=== PATIENT | male | born 1955 | race Caucasian/White ===

== ENCOUNTER 2017-07-08 12:44 | Emergency (ER) | payer BC ==
--- NOTE | 2017-07-08 13:58 | ERPHSYRPT ---
- History of Present Illness Time Seen by Provider: 07/08/17 13:49 Source: patient Exam Limitations: no limitations Patient Subjective Stated Complaint: FELT LEFT KNEE "POP" TODAY. HAS BEEN HAVING CHRONIC PAIN FOR A WHILE BUT TODAY IS MUCH WORSE. Triage Nursing Assessment: TO ROOM PER W/C. SKIN W/D, COLOR NORMAL. NO SWELLING NOTED TO LEFT KNEE AT THIS TIME. GOOD PEDAL PULSE. Physician History: This is a 61-year-old white male arrives with complaint of pain in his left knee. According the patient needs had chronic pain in his left knee for approximately a month however today he had name he was garage sale ing and felt a pop in his left knee is having pain in his knee he states he has pain which is much worse if he puts any weight on it. Past medical history includes restless leg syndrome Method of Injury: other (felt pop when walking around) Occurred: this afternoon (12:00) Lower Extremities Pain: knee: left Modifying Factors: Improves With: nothing Associated Symptoms: unable to bear weight, popping sensation Allergies/Adverse Reactions: No Known Drug Allergies Allergy (Unverified 07/08/17 13:14) Home Medications: Ropinirole 2Mg [Requip 2Mg Tab] 2 mg PO DAILY 07/08/17 [History] Hx Tetanus, Diphtheria Vaccination/Date Given: Yes Hx Influenza Vaccination/Date Given: No Hx Pneumococcal Vaccination/Date Given: No - Review of Systems Constitutional: No Fever, No Chills Eyes: No Symptoms Ears, Nose, & Throat: No Symptoms Respiratory: No Cough, No Dyspnea Cardiac: No Chest Pain, No Edema, No Syncope Abdominal/Gastrointestinal: No Abdominal Pain, No Nausea, No Vomiting, No Diarrhea Genitourinary Symptoms: No Dysuria Musculoskeletal: Joint Pain (left knee pain) Skin: No Rash Neurological: No Dizziness, No Focal Weakness, No Sensory Changes Psychological: No Symptoms Endocrine: No Symptoms All Other Systems: Reviewed and Negative - Past Medical History Pertinent Past Medical History: Yes Other Medical History: RLS - Past Surgical History Past Surgical History: No - Social History Smoking Status: Never smoker Exposure to second hand smoke: No Drug Use: none Patient Lives Alone: No - Nursing Vital Signs Nursing Vital Signs: Initial Vital Signs Temperature 98.1 F 07/08/17 13:15 Pulse Rate 82 07/08/17 13:15 Respiratory Rate 16 07/08/17 13:15 Blood Pressure 119/80 07/08/17 13:15 O2 Sat by Pulse Oximetry 98 07/08/17 13:15 Pain Scale Pain Intensity 5 - Physical Exam General Appearance: mild distress Eyes, Ears, Nose, Throat Exam: moist mucous membranes Neck Exam: non-tender, supple Cardiovascular/Respiratory Exam: chest non-tender, normal breath sounds, regular rate/rhythm, no respiratory distress Gastrointestinal/Abdominal Exam: non-tender, guarding Back Exam: normal inspection, No vertebral tenderness Hips Exam: bilateral: non-tender, normal inspection, normal range of motion, no evidence of injury Legs Exam: bilateral leg: non-tender, normal inspection, normal range of motion , no evidence of injury Knees Exam: right knee: non-tender, normal inspection, normal range of motion, no evidence of injury, left knee: bone tenderness (tenderness anterior knee), pain (pain with palpation and movementleft knee) Ankle Exam: bilateral ankle: non-tender, normal inspection, normal range of motion, no evidence of injury Foot Exam: bilateral foot: non-tender, normal inspection, normal range of motion , no evidence of injury DTR - Lower Extremities Exam: ankle (R): 1+, ankle (L): 1+ Neuro/Tendon Exam: normal sensation, normal motor functions Mental Status Exam: alert, oriented x 3, cooperative Skin Exam: normal color, warm, dry SpO2 Interpretation: normal (98%) SpO2: 98 - Course Nursing assessment & vital signs reviewed: Yes - Radiology Exams Left Knee X-ray Interpretation: Interpreted by me, Negative, No Fracture, No Subluxation Ordered Tests: Active Orders 24 hr Category Date Time Status Gurwinder Bandage Application -[facility] STAT Care 07/08/17 14:39 Active Crutches STAT Care 07/08/17 14:39 Active Immobilizer STAT Care 07/08/17 14:39 Active KNEE (3 VIEWS) Stat Exams 07/08/17 13:53 Taken Medication Summary Discontinued Medications Generic Name Dose Route Start Last Admin Trade Name Freq PRN Reason Stop Dose Admin Ketorolac Tromethamine 60 mg 07/08/17 14:01 07/08/17 14:20 Toradol 30 Mg Injection IM 07/08/17 14:02 60 mg STAT ONE Administration Ketorolac Tromethamine Confirm 07/08/17 14:07 Toradol 30 Mg Injection Administered 07/08/17 14:08 Dose 60 mg .ROUTE .STK-MED ONE Ketorolac Tromethamine Confirm 07/08/17 14:18 Toradol 30 Mg Injection Administered 07/08/17 14:19 Dose 60 mg .ROUTE .STK-MED ONE - Progress Progress: improved Progress Note: 07/08/17 13:57 61-year-old white male with history of a chronic knee pain for over a month arrives with complaint of pain in the left anterior knee mild edema to the left knee after feeling a pop while 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 07/08/17 14:42 X-ray left knee (my read) no fractures no dislocation, sunrise view unremarkable. Will go ahead and place Gurwinder wrap, left knee immobilizer, place patient on crutches. Write for Cyclone for pain patient advised that he can also take Advil. - Departure Time of Disposition: 14:43 Departure Disposition: Home Clinical Impression: Strain of left knee Qualifiers: Encounter type: initial encounter Qualified Code(s): S86.912A - Strain of unspecified muscle(s) and tendon(s) at lower leg level, left leg, initial encounter Left knee pain Qualifiers: Chronicity: acute Qualified Code(s): M25.562 - Pain in left knee Condition: Fair Critical Care Time: No Referrals: MILADIS KHAN [Primary Care Provider] - Instructions: Knee Pain Additional Instructions: Return home. Ice to left knee 24-48 hours. Crutches weightbearing as tolerated. Use left knee immobilizer 48-72 hours longer if pain persist. Cyclone as prescribed. Advil 2-3 tablets orally with food every 6 hours as needed for pain for 5 days. Follow-up with your family doctor if symptoms are worse, no better in 48 hours, or persist longer than one week. Return for acute distress or for severe symptoms. Your x-rays have been preliminarily read, they will be reread tomorrow you will be contacted if any discrepancies are noted. Crutches weightbearing as tolerated left leg. Prescriptions: Hydrocodone Bit/Acetaminophen [Cyclone 5/325Mg] 1 tab PO Q4-6HPRN PRN #14 tablet PRN Reason: Pain
[2017-07-08] MEDS ORDERED: TORAdol 30 mg Injection IM ONE (14:01)
[2017-07-08] MEDS ORDERED: TORAdol 30 mg Injection ONE ×2 (14:07→14:18)
--- NOTE | 2017-07-08 14:50 | XRAY ---
Indication: Medial pain. Pain with weightbearing. Comparison: December 11, 2015. 4 views of the left knee unchanged again demonstrating minimal medial joint space narrowing, superior patellar spurring, and small nonspecific suprapatellar effusion. Patellofemoral articulation symmetric. No new/acute findings.
[2017-07-08 15:06] VITALS: BP 115/69; PULSE 61; O2SAT 97
== END 2017-07-08 15:06 | disposition home or self-care (01) ==
LOC: ED 12:44
DX: S86.912A Strain of unspecified muscle(s) and tendon(s) at lower leg level, left leg, initial encounter (principal); M25.562 Pain in left knee; X50.0XXA Overexertion from strenuous movement or load, initial encounter
CPT/HCPCS: 73562; 96372; 99284; J1885; L1830

== ENCOUNTER 2019-08-11 21:26 | Emergency (ER) | payer BC ==
[2019-08-11] MEDS ORDERED: Rocephin 1000 MG INJ** 1,000 MG in Sodium Chloride 0.9% 100 ML IVPB 100 ML IV ONE (22:38)
[2019-08-11] MEDS ORDERED: Hydromorphone 1 mg/ml Ampule IV ONE (22:38)
[2019-08-11] MEDS ORDERED: Hydromorphone 1 mg/ml Ampule ONE (22:45)
[2019-08-11] MEDS ORDERED: ROCEPHIN 1 Gm-D5w 50 ml Bag** 1 G/50 ML IVPB IV ONE (22:46)
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
[2019-08-11 23:08] VITALS: BP 137/87; PULSE 103
[2019-08-12 00:11] VITALS: O2SAT 98
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
== END 2019-08-11 23:59 | disposition short-term general hospital (02) ==
LOC: ED 21:26
DX: S02.601B Fracture of unspecified part of body of right mandible, initial encounter for open fracture (principal); Y04.0XXA Assault by unarmed brawl or fight, initial encounter; Y93.89 Activity, other specified; R00.0 Tachycardia, unspecified; I10 Essential (primary) hypertension; K13.79 Other lesions of oral mucosa
CPT/HCPCS: 36000; 70486; 96374; 99285; J0696; J1170